=== PATIENT | female | born 1990 | race Caucasian/White ===

== ENCOUNTER 2018-03-10 22:15 | Inpatient (IN) | payer OTHER ==
[2018-03-10] MEDS ORDERED: ONDANSETRON 4 MG INJ IV (23:00)
[2018-03-11 00:58] LABS: ADD MAN DIFF? NO
[2018-03-11 01:01] LABS: WHITE BLOOD COUNT 6.2 10^3/ul (4.8-10.8)
[2018-03-11 01:01] LABS: BASOPHILS % 0.3 % (0.0-2.0); EOSINOPHILS # 0.1 10^3/ul (0.0-0.5); HEMATOCRIT 30.5 % (37.0-47.0); HEMOGLOBIN 10.6 g/dl (12.0-16.0); LYMPHOCYTES # 2.4 10^3/ul (0.8-2.9); LYMPHOCYTES % 38.8 % (15.0-51.0); MEAN CORPUSCULAR HEMOGLOBIN 29.1 pg (29.0-33.0); MEAN CORPUSCULAR HGB CONC 34.8 g/dl (32.0-37.0); MEAN CORPUSCULAR VOLUME 83.8 fl (82.0-101.0); MEAN PLATELET VOLUME 9.6 fl (7.4-10.4); MONOCYTE # 0.5 10^3/ul (0.3-0.9); MONOCYTES % 7.2 % (0.0-11.0); NEUTROPHIL # 3.3 10^3/ul (1.6-7.5); NEUTROPHILS % 52.4 % (39.0-77.0); PLATELET COUNT 200 10^3/UL (140-415); RED BLOOD COUNT 3.64 10^6/ul (4.20-5.40); RED CELL DISTRIBUTION WIDTH 14.6 % (11.5-14.5)
[2018-03-11 01:30] LABS: ALANINE AMINOTRANSFERASE 27 IU/L (13-69); ALBUMIN 3.2 g/dl (3.3-4.9); ALBUMIN/GLOBULIN RATIO 1.18; ALKALINE PHOSPHATASE 44 IU/L (42-121); ANION GAP 9 (8-16); ASPARTATE AMINO TRANSFERASE 14 IU/L (15-46); BILIRUBIN,INDIRECT 0.3 mg/dl (0-1.1); BILIRUBIN,TOTAL 0.3 mg/dl (0.2-1.3); CALCIUM 8.5 mg/dl (8.4-10.2); CARBON DIOXIDE 21 mmol/L (21-31); CHLORIDE 103 mmol/L (97-110); CREATININE 0.38 mg/dl (0.44-1.00); GLUCOSE 78 mg/dl (70-220); MAGNESIUM 1.5 mg/dl (1.7-2.5); PHOSPHORUS 2.9 mg/dl (2.5-4.9); POTASSIUM 3.4 mmol/L (3.5-5.1); SODIUM 130 mmol/L (135-144); TOTAL PROTEIN 5.9 g/dl (6.1-8.1)
[2018-03-11 01:42] LABS: BLOOD UREA NITROGEN < 2 mg/dl (7-20)
[2018-03-11] MEDS ORDERED: NACL 0.9% 3 ML SYG IV (08:30)
[2018-03-11] MEDS: ONDANSETRON 4 MG INJ IV ×3 (08:58→20:58)
[2018-03-11] MEDS: SOD CHLORIDE 0.9% 1,000 ML IV (09:00)
[2018-03-11] MEDS: DEXTROSE 5%-LR 1,000 ML IV ×2 (09:11→12:15)
[2018-03-11 09:26] LABS: FREE T4 (FREE THYROXINE) 1.35 ng/dl (0.79-2.35)
[2018-03-11 09:43] LABS: IRON 55 ug/dl (35-150)
[2018-03-11 09:53] LABS: % IRON SATURATION 17 % SAT (22-52); TOTAL IRON BINDING CAPACITY 321 ug/dl (241-421)
[2018-03-11 10:19] LABS: FERRITIN 10.6 ng/ml (6.2-137.0)
[2018-03-11] MEDS: MAGNESIUM SULFATE 2 GM/50 ML 50 ML IVPB (10:19)
[2018-03-11] MEDS: POTASSIUM CHLORIDE 100 ML IVPB ×2 (12:16→14:49)
[2018-03-11] MEDS: ACETAMINOPHEN 325 MG TAB PO (12:26)
[2018-03-11] MEDS: D5-LR + KCL 20 MEQ 1,000 ML IV ×3 (18:43→23:33)
[2018-03-12] MEDS: D5-LR + KCL 20 MEQ 1,000 ML IV ×6 (04:36→21:07)
[2018-03-12 05:19] LABS: ADD MAN DIFF? NO
[2018-03-12 05:22] LABS: BASOPHILS % 0.3 % (0.0-2.0); EOSINOPHILS # 0.1 10^3/ul (0.0-0.5); EOSINOPHILS % 0.9 % (0.0-7.0); HEMATOCRIT 30.4 % (37.0-47.0); HEMOGLOBIN 10.5 g/dl (12.0-16.0); LYMPHOCYTES # 1.9 10^3/ul (0.8-2.9); LYMPHOCYTES % 27.4 % (15.0-51.0); MEAN CORPUSCULAR HEMOGLOBIN 28.8 pg (29.0-33.0); MEAN CORPUSCULAR HGB CONC 34.5 g/dl (32.0-37.0); MEAN CORPUSCULAR VOLUME 83.3 fl (82.0-101.0); MEAN PLATELET VOLUME 9.8 fl (7.4-10.4); MONOCYTE # 0.5 10^3/ul (0.3-0.9); MONOCYTES % 7.2 % (0.0-11.0); NEUTROPHIL # 4.4 10^3/ul (1.6-7.5); NEUTROPHILS % 63.9 % (39.0-77.0); PLATELET COUNT 198 10^3/UL (140-415); RED BLOOD COUNT 3.65 10^6/ul (4.20-5.40); RED CELL DISTRIBUTION WIDTH 14.7 % (11.5-14.5)
[2018-03-12 05:22] LABS: WHITE BLOOD COUNT 6.9 10^3/ul (4.8-10.8)
[2018-03-12 05:51] LABS: ALANINE AMINOTRANSFERASE 18 IU/L (13-69); ALBUMIN/GLOBULIN RATIO 1.11; ALKALINE PHOSPHATASE 44 IU/L (42-121); ANION GAP 11 (8-16); ASPARTATE AMINO TRANSFERASE 12 IU/L (15-46); BILIRUBIN,INDIRECT 0.1 mg/dl (0-1.1); BILIRUBIN,TOTAL 0.1 mg/dl (0.2-1.3); CALCIUM 8.3 mg/dl (8.4-10.2); CARBON DIOXIDE 23 mmol/L (21-31); CHLORIDE 105 mmol/L (97-110); CREATININE 0.38 mg/dl (0.44-1.00); GLUCOSE 82 mg/dl (70-220); MAGNESIUM 1.5 mg/dl (1.7-2.5); PHOSPHORUS 2.5 mg/dl (2.5-4.9); SODIUM 135 mmol/L (135-144); TOTAL PROTEIN 5.7 g/dl (6.1-8.1)
[2018-03-12 05:58] LABS: BLOOD UREA NITROGEN < 2 mg/dl (7-20)
[2018-03-12] MEDS ORDERED: MAGNESIUM SULFATE 1 GM/D5W 100 ML IVPB (10:00)
[2018-03-12] MEDS: MAGNESIUM SULFATE 1 GM/D5W 100 ML IVPB ×3 (10:44→16:08)
[2018-03-12] MEDS: ONDANSETRON 4 MG INJ IV ×2 (10:50→17:05)
[2018-03-12] MEDS: FAMOTIDINE 20 MG INJ IV ×2 (14:24→21:08)
[2018-03-13] MEDS: D5-LR + KCL 20 MEQ 1,000 ML IV ×4 (02:25→21:05)
[2018-03-13 05:42] LABS: ADD MAN DIFF? NO
[2018-03-13 05:46] LABS: BASOPHILS % 0.3 % (0.0-2.0); EOSINOPHILS # 0.1 10^3/ul (0.0-0.5); EOSINOPHILS % 0.8 % (0.0-7.0); HEMATOCRIT 30.2 % (37.0-47.0); HEMOGLOBIN 10.2 g/dl (12.0-16.0); MEAN CORPUSCULAR HEMOGLOBIN 28.1 pg (29.0-33.0); MEAN CORPUSCULAR HGB CONC 33.8 g/dl (32.0-37.0); MEAN CORPUSCULAR VOLUME 83.2 fl (82.0-101.0); MEAN PLATELET VOLUME 9.6 fl (7.4-10.4); MONOCYTE # 0.4 10^3/ul (0.3-0.9); MONOCYTES % 7.1 % (0.0-11.0); NEUTROPHIL # 3.4 10^3/ul (1.6-7.5); NEUTROPHILS % 58.3 % (39.0-77.0); PLATELET COUNT 198 10^3/UL (140-415); RED BLOOD COUNT 3.63 10^6/ul (4.20-5.40); RED CELL DISTRIBUTION WIDTH 15.1 % (11.5-14.5)
[2018-03-13 05:46] LABS: WHITE BLOOD COUNT 5.9 10^3/ul (4.8-10.8)
[2018-03-13 06:17] LABS: PHOSPHORUS 2.8 mg/dl (2.5-4.9)
[2018-03-13 06:17] LABS: MAGNESIUM 1.8 mg/dl (1.7-2.5)
[2018-03-13 06:18] LABS: ALANINE AMINOTRANSFERASE 27 IU/L (13-69); ALBUMIN 2.9 g/dl (3.3-4.9); ALKALINE PHOSPHATASE 44 IU/L (42-121); ANION GAP 12 (8-16); ASPARTATE AMINO TRANSFERASE 12 IU/L (15-46); BILIRUBIN,INDIRECT 0.1 mg/dl (0-1.1); BILIRUBIN,TOTAL 0.1 mg/dl (0.2-1.3); CALCIUM 8.4 mg/dl (8.4-10.2); CARBON DIOXIDE 23 mmol/L (21-31); CHLORIDE 106 mmol/L (97-110); CREATININE 0.36 mg/dl (0.44-1.00); GLUCOSE 106 mg/dl (70-220); SODIUM 137 mmol/L (135-144); TOTAL PROTEIN 5.8 g/dl (6.1-8.1)
[2018-03-13 06:31] LABS: BLOOD UREA NITROGEN < 2 mg/dl (7-20)
[2018-03-13] MEDS: FAMOTIDINE 20 MG INJ IV ×2 (09:38→21:06)
[2018-03-13] MEDS: METOCLOPRAMIDE 10 MG INJ IV ×2 (09:38→21:12)
[2018-03-14] MEDS: ONDANSETRON 4 MG INJ IV ×2 (02:02→09:13)
[2018-03-14] MEDS: D5-LR + KCL 20 MEQ 1,000 ML IV ×3 (03:55→23:10)
[2018-03-14 06:04] LABS: ADD MAN DIFF? NO
[2018-03-14 06:17] LABS: BASOPHILS % 0.3 % (0.0-2.0); EOSINOPHILS % 0.7 % (0.0-7.0); HEMATOCRIT 30.9 % (37.0-47.0); HEMOGLOBIN 10.5 g/dl (12.0-16.0); LYMPHOCYTES # 1.9 10^3/ul (0.8-2.9); LYMPHOCYTES % 32.6 % (15.0-51.0); MEAN CORPUSCULAR HEMOGLOBIN 28.7 pg (29.0-33.0); MEAN CORPUSCULAR VOLUME 84.4 fl (82.0-101.0); MEAN PLATELET VOLUME 9.8 fl (7.4-10.4); MONOCYTE # 0.4 10^3/ul (0.3-0.9); MONOCYTES % 6.5 % (0.0-11.0); NEUTROPHIL # 3.5 10^3/ul (1.6-7.5); NEUTROPHILS % 59.4 % (39.0-77.0); PLATELET COUNT 206 10^3/UL (140-415); RED BLOOD COUNT 3.66 10^6/ul (4.20-5.40); RED CELL DISTRIBUTION WIDTH 14.8 % (11.5-14.5)
[2018-03-14 06:46] LABS: ANION GAP 11 (8-16); CALCIUM 8.5 mg/dl (8.4-10.2); CARBON DIOXIDE 23 mmol/L (21-31); CHLORIDE 104 mmol/L (97-110); CREATININE 0.29 mg/dl (0.44-1.00); GLUCOSE 82 mg/dl (70-220); POTASSIUM 3.7 mmol/L (3.5-5.1); SODIUM 134 mmol/L (135-144)
[2018-03-14 06:57] LABS: MAGNESIUM 1.4 mg/dl (1.7-2.5)
[2018-03-14 06:57] LABS: PHOSPHORUS 3.2 mg/dl (2.5-4.9)
[2018-03-14 08:18] LABS: BLOOD UREA NITROGEN < 2 mg/dl (7-20)
[2018-03-14] MEDS: FAMOTIDINE 20 MG INJ IV ×2 (09:13→21:37)
[2018-03-14] MEDS: METOCLOPRAMIDE 10 MG INJ IV (12:50)
[2018-03-14] MEDS: MAGNESIUM SULFATE 3 GM in DEXTROSE 5% 100 ML IVPB (17:19)
[2018-03-15] MEDS: ONDANSETRON 4 MG INJ IV ×2 (01:36→08:17)
[2018-03-15] MEDS: D5-LR + KCL 20 MEQ 1,000 ML IV ×4 (03:00→20:51)
[2018-03-15 05:11] LABS: ADD MAN DIFF? NO
[2018-03-15 05:17] LABS: BASOPHILS % 0.3 % (0.0-2.0); EOSINOPHILS % 0.6 % (0.0-7.0); HEMATOCRIT 31.7 % (37.0-47.0); HEMOGLOBIN 10.9 g/dl (12.0-16.0); LYMPHOCYTES % 30.9 % (15.0-51.0); MEAN CORPUSCULAR HEMOGLOBIN 28.8 pg (29.0-33.0); MEAN CORPUSCULAR HGB CONC 34.4 g/dl (32.0-37.0); MEAN CORPUSCULAR VOLUME 83.9 fl (82.0-101.0); MEAN PLATELET VOLUME 9.6 fl (7.4-10.4); MONOCYTE # 0.4 10^3/ul (0.3-0.9); NEUTROPHIL # 3.8 10^3/ul (1.6-7.5); NEUTROPHILS % 60.9 % (39.0-77.0); PLATELET COUNT 229 10^3/UL (140-415); RED BLOOD COUNT 3.78 10^6/ul (4.20-5.40); RED CELL DISTRIBUTION WIDTH 14.9 % (11.5-14.5)
[2018-03-15 05:17] LABS: WHITE BLOOD COUNT 6.3 10^3/ul (4.8-10.8)
[2018-03-15 05:35] LABS: MAGNESIUM 1.8 mg/dl (1.7-2.5)
[2018-03-15 05:47] LABS: ALANINE AMINOTRANSFERASE 18 IU/L (13-69); ALBUMIN 3.2 g/dl (3.3-4.9); ALKALINE PHOSPHATASE 47 IU/L (42-121); ANION GAP 9 (8-16); ASPARTATE AMINO TRANSFERASE 14 IU/L (15-46); BILIRUBIN,INDIRECT 0.1 mg/dl (0-1.1); BILIRUBIN,TOTAL 0.1 mg/dl (0.2-1.3); CALCIUM 8.6 mg/dl (8.4-10.2); CARBON DIOXIDE 25 mmol/L (21-31); CHLORIDE 105 mmol/L (97-110); CREATININE 0.36 mg/dl (0.44-1.00); GLUCOSE 95 mg/dl (70-220); SODIUM 135 mmol/L (135-144); TOTAL PROTEIN 6.1 g/dl (6.1-8.1)
[2018-03-15 06:12] LABS: BLOOD UREA NITROGEN < 2 mg/dl (7-20)
[2018-03-15] MEDS: FAMOTIDINE 20 MG INJ IV ×2 (08:17→20:51)
[2018-03-15] MEDS: PROMETHAZINE 12.5 MG SUPP PR (12:31)
[2018-03-15 12:55] LABS: FREE T4 (FREE THYROXINE) 1.12 ng/dl (0.79-2.35)
[2018-03-16] MEDS: D5-LR + KCL 20 MEQ 1,000 ML IV ×4 (03:04→22:04)
[2018-03-16 05:47] LABS: ADD MAN DIFF? NO
[2018-03-16 05:49] LABS: BASOPHILS % 0.5 % (0.0-2.0); EOSINOPHILS % 0.7 % (0.0-7.0); HEMATOCRIT 32.3 % (37.0-47.0); HEMOGLOBIN 11.1 g/dl (12.0-16.0); LYMPHOCYTES # 2.3 10^3/ul (0.8-2.9); LYMPHOCYTES % 39.3 % (15.0-51.0); MEAN CORPUSCULAR HEMOGLOBIN 29.5 pg (29.0-33.0); MEAN CORPUSCULAR HGB CONC 34.4 g/dl (32.0-37.0); MEAN CORPUSCULAR VOLUME 85.9 fl (82.0-101.0); MEAN PLATELET VOLUME 9.6 fl (7.4-10.4); MONOCYTE # 0.4 10^3/ul (0.3-0.9); MONOCYTES % 7.3 % (0.0-11.0); NEUTROPHIL # 3.1 10^3/ul (1.6-7.5); NEUTROPHILS % 51.9 % (39.0-77.0); PLATELET COUNT 211 10^3/UL (140-415); RED BLOOD COUNT 3.76 10^6/ul (4.20-5.40); RED CELL DISTRIBUTION WIDTH 15.3 % (11.5-14.5)
[2018-03-16 05:49] LABS: WHITE BLOOD COUNT 5.9 10^3/ul (4.8-10.8)
[2018-03-16 06:36] LABS: ALANINE AMINOTRANSFERASE 22 IU/L (13-69); ALBUMIN 3.1 g/dl (3.3-4.9); ALBUMIN/GLOBULIN RATIO 1.03; ALKALINE PHOSPHATASE 41 IU/L (42-121); ANION GAP 14 (8-16); ASPARTATE AMINO TRANSFERASE 17 IU/L (15-46); BILIRUBIN,INDIRECT 0.3 mg/dl (0-1.1); BILIRUBIN,TOTAL 0.3 mg/dl (0.2-1.3); CALCIUM 8.8 mg/dl (8.4-10.2); CARBON DIOXIDE 23 mmol/L (21-31); CHLORIDE 104 mmol/L (97-110); CREATININE 0.34 mg/dl (0.44-1.00); GLUCOSE 88 mg/dl (70-220); POTASSIUM 4.4 mmol/L (3.5-5.1); SODIUM 137 mmol/L (135-144); TOTAL PROTEIN 6.1 g/dl (6.1-8.1)
[2018-03-16 06:37] LABS: BLOOD UREA NITROGEN < 2 mg/dl (7-20)
[2018-03-16 06:39] LABS: PHOSPHORUS 3.8 mg/dl (2.5-4.9)
[2018-03-16 06:39] LABS: MAGNESIUM 1.5 mg/dl (1.7-2.5)
[2018-03-16] MEDS: FAMOTIDINE 20 MG INJ IV ×2 (08:35→21:28)
[2018-03-16] MEDS: PROMETHAZINE 12.5 MG SUPP PR (08:36)
[2018-03-16] MEDS: MAGNESIUM SULFATE 3 GM in DEXTROSE 5% 100 ML IVPB (11:30)
[2018-03-16] MEDS: LIDOCAINE 1% (MPF) 5 ML VIAL SC (12:30)
[2018-03-16 13:20] LABS: INR 1.12; PROTIME 14.6 Sec (11.9-14.9); PT RATIO 1.1
[2018-03-16 13:21] LABS: PARTIAL THROMBOPLASTIN TIME 31.5 Sec (25.0-35.0)
[2018-03-16 18:51] LABS: ALANINE AMINOTRANSFERASE 28 IU/L (13-69); ALBUMIN 3.3 g/dl (3.3-4.9); ALBUMIN/GLOBULIN RATIO 1.13; ALKALINE PHOSPHATASE 49 IU/L (42-121); ANION GAP 14 (8-16); ASPARTATE AMINO TRANSFERASE 18 IU/L (15-46); BILIRUBIN,INDIRECT 0.3 mg/dl (0-1.1); BILIRUBIN,TOTAL 0.3 mg/dl (0.2-1.3); CALCIUM 8.4 mg/dl (8.4-10.2); CARBON DIOXIDE 23 mmol/L (21-31); CHLORIDE 101 mmol/L (97-110); CREATININE 0.32 mg/dl (0.44-1.00); GLUCOSE 102 mg/dl (70-220); PHOSPHORUS 3.6 mg/dl (2.5-4.9); POTASSIUM 3.7 mmol/L (3.5-5.1); SODIUM 134 mmol/L (135-144); TOTAL PROTEIN 6.2 g/dl (6.1-8.1); TRIGLYCERIDES 80 mg/dl (0-149)
[2018-03-16 18:54] LABS: BLOOD UREA NITROGEN < 2 mg/dl (7-20)
[2018-03-16 18:58] LABS: PREALBUMIN 15.4 mg/dl (17.6-36.0)
[2018-03-16] MEDS: ACCU-CHEK XX (21:00)
[2018-03-16] MEDS: METOCLOPRAMIDE 10 MG INJ IV (21:28)
[2018-03-17] MEDS: ACCU-CHEK XX ×6 (01:00→20:54)
[2018-03-17] MEDS: D5-LR + KCL 20 MEQ 1,000 ML IV ×2 (04:38→12:14)
[2018-03-17 05:28] LABS: WHITE BLOOD COUNT 5.6 10^3/ul (4.8-10.8)
[2018-03-17 05:28] LABS: ADD MAN DIFF? NO; BASOPHILS % 0.4 % (0.0-2.0); EOSINOPHILS % 0.5 % (0.0-7.0); HEMATOCRIT 30.7 % (37.0-47.0); HEMOGLOBIN 10.4 g/dl (12.0-16.0); LYMPHOCYTES # 1.8 10^3/ul (0.8-2.9); LYMPHOCYTES % 32.1 % (15.0-51.0); MEAN CORPUSCULAR HGB CONC 33.9 g/dl (32.0-37.0); MEAN CORPUSCULAR VOLUME 85.5 fl (82.0-101.0); MEAN PLATELET VOLUME 9.2 fl (7.4-10.4); MONOCYTE # 0.5 10^3/ul (0.3-0.9); MONOCYTES % 8.1 % (0.0-11.0); NEUTROPHIL # 3.3 10^3/ul (1.6-7.5); NEUTROPHILS % 58.5 % (39.0-77.0); PLATELET COUNT 189 10^3/UL (140-415); RED BLOOD COUNT 3.59 10^6/ul (4.20-5.40)
[2018-03-17 05:55] LABS: PHOSPHORUS 3.9 mg/dl (2.5-4.9)
[2018-03-17 05:55] LABS: MAGNESIUM 1.6 mg/dl (1.7-2.5)
[2018-03-17 07:20] LABS: ALANINE AMINOTRANSFERASE 18 IU/L (13-69); ALBUMIN 3.1 g/dl (3.3-4.9); ALBUMIN/GLOBULIN RATIO 1.06; ALKALINE PHOSPHATASE 47 IU/L (42-121); ANION GAP 10 (8-16); ASPARTATE AMINO TRANSFERASE 18 IU/L (15-46); BILIRUBIN,INDIRECT 0.1 mg/dl (0-1.1); BILIRUBIN,TOTAL 0.1 mg/dl (0.2-1.3); CALCIUM 8.7 mg/dl (8.4-10.2); CARBON DIOXIDE 23 mmol/L (21-31); CHLORIDE 106 mmol/L (97-110); CREATININE 0.35 mg/dl (0.44-1.00); GLUCOSE 81 mg/dl (70-220); POTASSIUM 3.8 mmol/L (3.5-5.1); SODIUM 135 mmol/L (135-144)
[2018-03-17 07:21] LABS: BLOOD UREA NITROGEN < 2 mg/dl (7-20)
[2018-03-17] MEDS: FAMOTIDINE 20 MG INJ IV ×2 (09:15→20:54)
[2018-03-17] MEDS: METOCLOPRAMIDE 10 MG INJ IV (09:27)
[2018-03-17] MEDS: MAGNESIUM SULFATE 2 GM/50 ML 50 ML IVPB (13:44)
[2018-03-17] MEDS: ONDANSETRON 4 MG INJ IV ×2 (13:50→20:54)
[2018-03-17] MEDS: TPN 1,000 ML IV (16:57)
[2018-03-17] MEDS: FAT EMULSION 20% 250 ML IV (16:57)
[2018-03-18] MEDS: ACCU-CHEK XX ×5 (01:07→17:17)
[2018-03-18 05:54] LABS: ADD MAN DIFF? NO
[2018-03-18 05:56] LABS: WHITE BLOOD COUNT 6.5 10^3/ul (4.8-10.8)
[2018-03-18 05:56] LABS: BASOPHILS % 0.2 % (0.0-2.0); EOSINOPHILS # 0.1 10^3/ul (0.0-0.5); EOSINOPHILS % 1.2 % (0.0-7.0); HEMATOCRIT 32.7 % (37.0-47.0); HEMOGLOBIN 11.2 g/dl (12.0-16.0); LYMPHOCYTES # 1.7 10^3/ul (0.8-2.9); LYMPHOCYTES % 26.3 % (15.0-51.0); MEAN CORPUSCULAR HEMOGLOBIN 28.9 pg (29.0-33.0); MEAN CORPUSCULAR HGB CONC 34.3 g/dl (32.0-37.0); MEAN CORPUSCULAR VOLUME 84.3 fl (82.0-101.0); MEAN PLATELET VOLUME 9.3 fl (7.4-10.4); MONOCYTE # 0.5 10^3/ul (0.3-0.9); MONOCYTES % 7.7 % (0.0-11.0); NEUTROPHIL # 4.2 10^3/ul (1.6-7.5); NEUTROPHILS % 64.3 % (39.0-77.0); PLATELET COUNT 212 10^3/UL (140-415); RED BLOOD COUNT 3.88 10^6/ul (4.20-5.40); RED CELL DISTRIBUTION WIDTH 14.8 % (11.5-14.5)
[2018-03-18 06:23] LABS: MAGNESIUM 1.9 mg/dl (1.7-2.5)
[2018-03-18 06:23] LABS: PHOSPHORUS 4.1 mg/dl (2.5-4.9)
[2018-03-18 06:29] LABS: ALANINE AMINOTRANSFERASE 25 IU/L (13-69); ALBUMIN 3.3 g/dl (3.3-4.9); ALBUMIN/GLOBULIN RATIO 1.03; ALKALINE PHOSPHATASE 49 IU/L (42-121); ANION GAP 16 (8-16); ASPARTATE AMINO TRANSFERASE 21 IU/L (15-46); BILIRUBIN,INDIRECT 0.2 mg/dl (0-1.1); BILIRUBIN,TOTAL 0.2 mg/dl (0.2-1.3); BLOOD UREA NITROGEN 5 mg/dl (7-20); CALCIUM 8.7 mg/dl (8.4-10.2); CARBON DIOXIDE 21 mmol/L (21-31); CHLORIDE 103 mmol/L (97-110); CREATININE 0.36 mg/dl (0.44-1.00); GLUCOSE 75 mg/dl (70-220); POTASSIUM 4.1 mmol/L (3.5-5.1); SODIUM 136 mmol/L (135-144); TOTAL PROTEIN 6.5 g/dl (6.1-8.1)
[2018-03-18] MEDS: FAMOTIDINE 20 MG INJ IV ×2 (09:01→21:16)
[2018-03-18] MEDS: TPN 1,000 ML IV (09:03)
[2018-03-18] MEDS: FAT EMULSION 20% 250 ML IV (16:33)
[2018-03-18] MEDS: ONDANSETRON 4 MG INJ IV (21:19)
[2018-03-19] MEDS: ACCU-CHEK XX ×3 (00:27→12:30)
[2018-03-19] MEDS: TPN 1,000 ML IV (02:13)
[2018-03-19] MEDS: ONDANSETRON 4 MG INJ IV ×2 (05:04→17:27)
[2018-03-19] MEDS: AL HYDROX/MG HYDROX/SIMETH 30 ML CUP PO (05:30)
[2018-03-19 05:55] LABS: ADD MAN DIFF? NO
[2018-03-19 06:14] LABS: BASOPHILS % 0.3 % (0.0-2.0); EOSINOPHILS # 0.1 10^3/ul (0.0-0.5); HEMOGLOBIN 11.4 g/dl (12.0-16.0); LYMPHOCYTES # 1.7 10^3/ul (0.8-2.9); LYMPHOCYTES % 22.4 % (15.0-51.0); MEAN CORPUSCULAR HEMOGLOBIN 29.2 pg (29.0-33.0); MEAN CORPUSCULAR HGB CONC 34.5 g/dl (32.0-37.0); MEAN CORPUSCULAR VOLUME 84.6 fl (82.0-101.0); MEAN PLATELET VOLUME 9.4 fl (7.4-10.4); MONOCYTE # 0.5 10^3/ul (0.3-0.9); MONOCYTES % 5.9 % (0.0-11.0); NEUTROPHIL # 5.4 10^3/ul (1.6-7.5); NEUTROPHILS % 69.9 % (39.0-77.0); PLATELET COUNT 226 10^3/UL (140-415); RED CELL DISTRIBUTION WIDTH 14.9 % (11.5-14.5)
[2018-03-19 06:14] LABS: WHITE BLOOD COUNT 7.8 10^3/ul (4.8-10.8)
[2018-03-19 06:27] LABS: MAGNESIUM 1.7 mg/dl (1.7-2.5)
[2018-03-19 06:27] LABS: PHOSPHORUS 3.8 mg/dl (2.5-4.9)
[2018-03-19 06:34] LABS: ALANINE AMINOTRANSFERASE 22 IU/L (13-69); ALBUMIN 3.4 g/dl (3.3-4.9); ALBUMIN/GLOBULIN RATIO 1.13; ALKALINE PHOSPHATASE 52 IU/L (42-121); ANION GAP 11 (8-16); ASPARTATE AMINO TRANSFERASE 20 IU/L (15-46); BLOOD UREA NITROGEN 6 mg/dl (7-20); CALCIUM 8.7 mg/dl (8.4-10.2); CARBON DIOXIDE 23 mmol/L (21-31); CHLORIDE 105 mmol/L (97-110); CREATININE 0.34 mg/dl (0.44-1.00); GLUCOSE 98 mg/dl (70-220); POTASSIUM 3.6 mmol/L (3.5-5.1); SODIUM 135 mmol/L (135-144); TOTAL PROTEIN 6.4 g/dl (6.1-8.1)
[2018-03-19] MEDS: FAMOTIDINE 20 MG INJ IV (09:48)
[2018-03-19] MEDS: HEPARIN (100 UNITS/ML) 5 ML SYG CATHETER (17:32)
== END 2018-03-19 17:30 | disposition home or self-care (01) | DRG 781 ==
LOC: MS1 03-15 05:44
PROC: 02HV33Z Insertion of Infusion Device into Superior Vena Cava, Percutaneous Approach (ICD-10-PCS; principal; 2018-03-16)
PROC: 3E0436Z Introduction of Nutritional Substance into Central Vein, Percutaneous Approach (ICD-10-PCS; 2018-03-16)
DX: O21.1 Hyperemesis gravidarum with metabolic disturbance (principal); E43 Unspecified severe protein-calorie malnutrition; Z68.1 Body mass index [BMI] 19.9 or less, adult; E86.0 Dehydration; O25.11 Malnutrition in pregnancy, first trimester; E83.42 Hypomagnesemia; Z3A.10 10 weeks gestation of pregnancy
CPT/HCPCS: 36569; 71045; 76801; 76937; 80048; 80053; 82728; 82962; 83036; 83540; 83735; 84100; 84134; 84439; 84443; 84478; 84702; 85025; 85610; 85730; 99217

== ENCOUNTER 2018-09-20 01:40 | Inpatient (IN) | payer OTHER ==
[2018-09-20 03:19] LABS: ADD UMIC YES; UR ASCORBIC ACID 40 mg/dL (NEGATIVE); UR BACTERIA FEW /HPF (NONE SEEN); UR BILIRUBIN (Dip) NEGATIVE (NEGATIVE); UR BLOOD (Dip) 2+ mg/dL (NEGATIVE); UR CLARITY CLEAR (CLEAR); UR COLOR YELLOW (YELLOW); UR GLUCOSE (Dip) NEGATIVE (NEGATIVE); UR KETONES (Dip) TRACE mg/dL (NEGATIVE); UR LEUKOCYTE ESTERASE (Dip) TRACE Leu/ul (NEGATIVE); UR NITRITE (Dip) NEGATIVE (NEGATIVE); UR RBC 49 /HPF (0-5); UR SPECIFIC GRAVITY (Dip) 1.014 (1.003-1.030); UR TOTAL PROTEIN (Dip) NEGATIVE (NEGATIVE); UR UROBILINOGEN (Dip) NEGATIVE (NEGATIVE); UR WBC 1 /HPF (0-5)
[2018-09-20] MEDS ORDERED: LIDOCAINE 1% (MPF) 30 ML INJ INJ (04:00)
[2018-09-20] MEDS ORDERED: CARBOPROST 250 MCG INJ IM (04:00)
[2018-09-20] MEDS ORDERED: METHYLERGONOVINE 0.2 MG INJ IM (04:00)
[2018-09-20] MEDS ORDERED: MISOPROSTOL 200 MCG TAB PR (04:00)
[2018-09-20] MEDS ORDERED: OXYTOCIN 30 UNITS/LR 500 ML IV ×3 (04:00)
[2018-09-20] MEDS: LACTATED RINGER'S 1,000 ML IV ×4 (05:14→23:33)
[2018-09-20] MEDS: AMPICILLIN 2 GM/NS (PMX) 100 ML IV (05:15)
[2018-09-20] MEDS: BUTORPHANOL 2 MG INJ IV (05:29)
[2018-09-20 06:14] LABS: ADD MAN DIFF? NO
[2018-09-20 06:17] LABS: WHITE BLOOD COUNT 8.2 10^3/ul (4.8-10.8)
[2018-09-20 06:17] LABS: BASOPHILS % 0.4 % (0.0-2.0); EOSINOPHILS # 0.1 10^3/ul (0.0-0.5); HEMATOCRIT 31.8 % (37.0-47.0); HEMOGLOBIN 10.3 g/dl (12.0-16.0); LYMPHOCYTES # 1.3 10^3/ul (0.8-2.9); LYMPHOCYTES % 16.3 % (15.0-51.0); MEAN CORPUSCULAR HEMOGLOBIN 27.2 pg (29.0-33.0); MEAN CORPUSCULAR HGB CONC 32.4 g/dl (32.0-37.0); MEAN CORPUSCULAR VOLUME 84.1 fl (82.0-101.0); MEAN PLATELET VOLUME 10.4 fl (7.4-10.4); MONOCYTE # 0.5 10^3/ul (0.3-0.9); MONOCYTES % 6.5 % (0.0-11.0); NEUTROPHIL # 6.1 10^3/ul (1.6-7.5); NEUTROPHILS % 74.8 % (39.0-77.0); PLATELET COUNT 216 10^3/UL (140-415); RED BLOOD COUNT 3.78 10^6/ul (4.20-5.40); RED CELL DISTRIBUTION WIDTH 15.8 % (11.5-14.5)
[2018-09-20 06:41] LABS: INR 0.94; PROTIME 12.7 Sec (11.9-14.9)
[2018-09-20 06:42] LABS: PARTIAL THROMBOPLASTIN TIME 26.9 Sec (23.0-35.0)
[2018-09-20 07:16] LABS: HEPATITIS B SURFACE ANTIGEN NEGATIVE (NEGATIVE)
[2018-09-20] MEDS ORDERED: AMPICILLIN 1 GM/NS (PMX) 50 ML IV (08:00)
[2018-09-20] MEDS: AMPICILLIN 1 GM/NS (PMX) 50 ML IV ×4 (09:20→21:26)
[2018-09-20 15:36] LABS: RAPID PLASMA REAGIN NONREACTIVE (NR)
[2018-09-20] MEDS: AZITHROMYCIN 500MG/NS (PMX) 250 ML IVPB (22:33)
[2018-09-20] MEDS: ACETAMINOPHEN 500 MG TAB PO (22:44)
[2018-09-20] MEDS ORDERED: FENTAnyl 2MCG/ML-ROPIV 0.2% 100 ML (23:35)
[2018-09-21] MEDS ORDERED: NALOXONE (0.4 MG/ML) INJ IV
[2018-09-21] MEDS ORDERED: KETOROLAC 30 MG INJ IV
[2018-09-21] MEDS ORDERED: HYDROmorphONE 0.5 MG/0.5 ML SYG IV ×2
[2018-09-21] MEDS: LACTATED RINGER'S 1,000 ML IV ×3 (00:11→08:22)
[2018-09-21] MEDS: FENTAnyl 2MCG/ML-ROPIV 0.2% 100 ML BAG EPI ×2 (00:52→09:35)
[2018-09-21] MEDS: AMPICILLIN 1 GM/NS (PMX) 50 ML IV ×4 (01:11→12:55)
[2018-09-21] MEDS: OXYTOCIN 30 UNITS/LR 500 ML IV ×2 (01:15→14:45)
[2018-09-21] MEDS: ACETAMINOPHEN 500 MG TAB PO (05:59)
[2018-09-21 06:20] LABS: LACTATE DEHYDROGENASE 544 IU/L (313-618)
[2018-09-21 08:28] LABS: ADD MAN DIFF? NO
[2018-09-21 08:40] LABS: WHITE BLOOD COUNT 5.5 10^3/ul (4.8-10.8)
[2018-09-21 08:40] LABS: ABNORMAL IP MESSAGE 1; BASOPHILS % 0.5 % (0.0-2.0); EOSINOPHILS % 0.4 % (0.0-7.0); HEMATOCRIT 26.4 % (37.0-47.0); HEMOGLOBIN 8.3 g/dl (12.0-16.0); LYMPHOCYTES # 0.6 10^3/ul (0.8-2.9); LYMPHOCYTES % 10.5 % (15.0-51.0); MEAN CORPUSCULAR HEMOGLOBIN 27.1 pg (29.0-33.0); MEAN CORPUSCULAR HGB CONC 31.4 g/dl (32.0-37.0); MEAN CORPUSCULAR VOLUME 86.3 fl (82.0-101.0); MEAN PLATELET VOLUME 10.5 fl (7.4-10.4); MONOCYTE # 0.4 10^3/ul (0.3-0.9); MONOCYTES % 7.8 % (0.0-11.0); NEUTROPHIL # 4.4 10^3/ul (1.6-7.5); PLATELET COUNT 156 10^3/UL (140-415); RED BLOOD COUNT 3.06 10^6/ul (4.20-5.40); RED CELL DISTRIBUTION WIDTH 15.9 % (11.5-14.5)
[2018-09-21 08:57] LABS: POSITIVE DIFF @See below
[2018-09-21] MEDS ORDERED: IBUPROFEN 800 MG TAB (14:28)
[2018-09-21] MEDS ORDERED: HYDROCODONE/APAP (5/325) TAB PO ×2 (14:30)
[2018-09-21] MEDS ORDERED: ONDANSETRON 4 MG INJ IV ×2 (14:30)
[2018-09-21] MEDS ORDERED: DIBUCAINE 1% 30 GM OINT TOP (14:30)
[2018-09-21] MEDS ORDERED: CARBOPROST 250 MCG INJ IM (14:30)
[2018-09-21] MEDS ORDERED: MISOPROSTOL 200 MCG TAB PR (14:30)
[2018-09-21] MEDS ORDERED: ONDANSETRON 4 MG TAB PO (14:30)
[2018-09-21] MEDS ORDERED: DIPHENHYDRAMINE 25 MG CAP PO (14:30)
[2018-09-21] MEDS ORDERED: MAGNESIUM HYDROXIDE 30ML CUP PO (14:30)
[2018-09-21] MEDS ORDERED: DIPHENHYDRAMINE 50 MG INJ IV ×2 (14:30)
[2018-09-21] MEDS ORDERED: METHYLERGONOVINE 0.2 MG INJ IM (14:30)
[2018-09-21] MEDS ORDERED: ACETAMINOPHEN 325 MG TAB PO ×2 (14:30)
[2018-09-21] MEDS ORDERED: ACETAMINOPHEN 500 MG TAB PO (14:30)
[2018-09-21] MEDS: IBUPROFEN 800 MG TAB PO (14:33)
[2018-09-21] MEDS: BENZOCAINE 20% 56 ML SPRAY TOP (17:49)
[2018-09-21] MEDS: WITCH HAZEL/GLYCERIN PAD PR (17:49)
[2018-09-21] MEDS: LANOLIN HPA 1 PKT TOP (17:49)
[2018-09-21] MEDS: LACTATED RINGER'S 1,000 ML IV* ×2 (18:27→22:00)
[2018-09-22] MEDS: CEFAZOLIN 2 GM/50 ML (PMX) 50 ML IVPB ×3 (00:17→13:46)
[2018-09-22] MEDS: IBUPROFEN 800 MG TAB PO ×4 (00:18→17:57)
[2018-09-22] MEDS: LACTATED RINGER'S 1,000 ML IV* ×3 (06:06→22:06)
[2018-09-22 09:06] LABS: ADD MAN DIFF? NO
[2018-09-22 09:09] LABS: WHITE BLOOD COUNT 5.6 10^3/ul (4.8-10.8)
[2018-09-22 09:09] LABS: BASOPHILS % 0.4 % (0.0-2.0); EOSINOPHILS % 0.4 % (0.0-7.0); HEMATOCRIT 25.8 % (37.0-47.0); HEMOGLOBIN 8.2 g/dl (12.0-16.0); LYMPHOCYTES # 1.5 10^3/ul (0.8-2.9); MEAN CORPUSCULAR HEMOGLOBIN 27.2 pg (29.0-33.0); MEAN CORPUSCULAR HGB CONC 31.8 g/dl (32.0-37.0); MEAN CORPUSCULAR VOLUME 85.7 fl (82.0-101.0); MEAN PLATELET VOLUME 10.6 fl (7.4-10.4); MONOCYTE # 0.7 10^3/ul (0.3-0.9); MONOCYTES % 11.7 % (0.0-11.0); NEUTROPHIL # 3.3 10^3/ul (1.6-7.5); NEUTROPHILS % 59.3 % (39.0-77.0); PLATELET COUNT 148 10^3/UL (140-415); RED BLOOD COUNT 3.01 10^6/ul (4.20-5.40)
[2018-09-22] MEDS: AZITHROMYCIN 250 MG TAB PO (10:06)
[2018-09-22] MEDS: SENNA/DOCUSATE NA (8.6MG/50MG) TAB PO (18:00)
[2018-09-23] MEDS: LANOLIN HPA 1 PKT TOP (01:16)
[2018-09-23] MEDS: IBUPROFEN 800 MG TAB PO ×3 (06:00→12:00)
[2018-09-23] MEDS: LACTATED RINGER'S 1,000 ML IV* (06:06)
[2018-09-23] MEDS: MEASLES,MUMPS,RUBELLA VACCINE INJ SC* (07:33)
[2018-09-23] MEDS: DIPHTH/TET/ACEL PERTUSS (ADULT) 0.5 ML VIAL IM* (07:33)
[2018-09-23] MEDS: AZITHROMYCIN 250 MG TAB PO (09:22)
[2018-09-23] MEDS: VARICELLA VACCINE LIVE/PF 1,350 UNIT/0.5 ML ML SC* (09:22)
== END 2018-09-23 16:10 | disposition home or self-care (01) | DRG 807 ==
LOC: OBT 01:40 → PP1 09-21 17:05 → L-D 01:40 → OBT 03:45 → L-D 03:45
PROC: 10E0XZZ Delivery of Products of Conception, External Approach (ICD-10-PCS; principal; 2018-09-20)
PROC: 0UQMXZZ Repair Vulva, External Approach (ICD-10-PCS; 2018-09-20)
DX: O71.82 Other specified trauma to perineum and vulva (principal); Z37.0 Single live birth; Z3A.37 37 weeks gestation of pregnancy
CPT/HCPCS: 62319; 76815; 76818; 81001; 83605; 83615; 85025; 85610; 85730; 86592; 86850; 86870; 86900; 86901; 86902; 87070; 87340; 90716; 99464